=== PATIENT | male | born 1975 | race Caucasian/White ===

== ENCOUNTER 2016-05-24 17:16 | Inpatient (IN) | payer BC ==
[2016-05-24] MEDS ORDERED: BENADRYL 50 MG/ML IV ONE (17:28)
[2016-05-24] MEDS ORDERED: Sodium Chloride 0.9% 1000 ML 1,000 ML IV STA (17:28)
[2016-05-24] MEDS ORDERED: Pepcid 20 MG VIAL IV ONE ×2 (17:28→17:32)
[2016-05-24] MEDS ORDERED: MORPHINE SULFATE 10 MG/ML IV ONE (17:29)
[2016-05-24] MEDS ORDERED: MORPHINE SULFATE 10 MG/ML ONE (17:32)
[2016-05-24] MEDS ORDERED: Sodium Chloride 0.9% 1000 ML 1,000 ML ONE ×2 (17:32→18:54)
[2016-05-24] MEDS ORDERED: Zofran 4 MG/2 ML VIAL ONE ×2 (17:32→18:53)
[2016-05-24] MEDS ORDERED: BENADRYL 50 MG/ML ONE (17:32)
[2016-05-24] MEDS ORDERED: Zofran 4 MG/2 ML VIAL IV ONE ×2 (17:32→18:52)
[2016-05-24 17:36] LABS: BASOPHIL % 0.2 % (0.0-0.4); Eosinophil % 0.9 % (0.00-5.0); Granulocytes % 73.8 % (36.0-66.0); Lymphocytes % 18.8 % (24.0-44.0); Mean Cell Volume 88.1 fl (78-100); Mean Corpuscular Hemoglobin 29.4 pg (26-32); Mean Platelet Volume 10.5 fl (6-9.5); Monocytes % 6.3 % (0.0-12.0); Platelet Count 239 K/mm3 (150-450); Red Blood Count 4.94 M/mm3 (4.1-5.6); Red Cell Distribution Width 12.8 % (11.5-14.0)
[2016-05-24 17:46] LABS: Bacteria FEW /HPF (NEGATIVE); COMPLETE URINE MICROSCOPIC? YES; Collection Type CLEAN CATCH; Epithelial Cells RARE /HPF (FEW); Mucus SLIGHT /HPF (NEGATIVE); Ph 8.5 (5-6); WBC 0-2 /HPF (0-5)
[2016-05-24 17:55] LABS: ALBUMIN 4.6 g/dL (3.4-5.0); ALKALINE PHOSPHATASE 92 U/L (46-116); ANION GAP 14.6 MEQ/L (5-15); BLOOD UREA NITROGEN 16 mg/dL (9-20); CHLORIDE 103 mEq/L (98-107); Carbon Dioxide 30.1 mEq/L (21-32); Glucose 110 MG/DL (70-110); LIPASE 151 U/L (73-393); SGOT/AST 22 U/L (15-37); SGPT/ALT 25 U/L (12-78); SODIUM 144 mEq/L (136-145); Total Protein 7.8 gm/dL (6.4-8.2)
[2016-05-24] MEDS ORDERED: MORPHINE SULFATE 4 MG INJ IV ONE ×2 (18:03→18:52)
[2016-05-24] MEDS ORDERED: MORPHINE SULFATE 4 MG INJ ONE ×2 (18:06→18:54)
--- NOTE | 2016-05-24 18:13 | ERPHSYRPT ---
- History of Present Illness Time Seen by Provider: 05/24/16 17:28 Historian: patient Patient Subjective Stated Complaint: PT COMPLAINS OF SUDDEN ONSET ABDOMINAL PAIN TODAY. AROUND 1330 STATES LAST BM TODAY DENIES ANY PROBLEMS WITH URINATION OR ANY HX OF KIDNEY STONES. Triage Nursing Assessment: PT ALERT GRIMACINGIN PAIN PALE WARM AND DRY PT AMBULATED TO ROOM. PAIN ON PALPATION TO RIGHT LOWER QUAD. LAST ATE 1330 Physician History: CC: abd pain Hx: 40 y/o male patient of Dr Aj Gann. He ate [place] for lunch today. Within 30 minutes he had cramping excruciating abd pain. Had normal BM. Sat on toilet trying to relieve symptoms with BM. Nausea. Scant vomit. No fever or chills. Pain is severe. Finally came to ER. No blood in urine. Normal urination. No back pain. No hx of this pain in the past. He has known small umbilical hernia. Timing/Duration: today Quality: cramping, sharpness, stabbing Pain Radiation: no radiation Severity of Pain-Max: severe Severity of Pain-Current: severe Allergies/Adverse Reactions: No Known Drug Allergies Allergy (Unverified 05/24/16 17:22) Home Medications: Lisinopril 10 mg PO 05/24/16 [History] Hx Tetanus, Diphtheria Vaccination/Date Given: No Hx Influenza Vaccination/Date Given: No (UNKNOWN) Immunizations Up to Date: Yes - Review of Systems Constitutional: Malaise, No Fever, No Chills Eyes: No Symptoms Ears, Nose, & Throat: No Symptoms Respiratory: No Cough Cardiac: No Chest Pain Abdominal/Gastrointestinal: Abdominal Pain, Nausea, No Diarrhea, No Constipation Genitourinary Symptoms: No Dysuria, No Hematuria, No Flank Pain Skin: No Rash Neurological: No Headache All Other Systems: Reviewed and Negative - Past Medical History Pertinent Past Medical History: Yes Cardiac History: Hypertension Other Medical History: Umbilical hernia - Past Surgical History Past Surgical History: Yes Other Surgical History: NOSE - Social History Smoking Status: Never smoker Exposure to second hand smoke: No Drug Use: none 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 (, 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) - Nursing Vital Signs Nursing Vital Signs: Initial Vital Signs Temperature 97.4 F Temperature Source Oral Pulse Rate 75 Respiratory Rate 18 Blood Pressure 141/85 Pain Intensity 8 - Physical Exam General Appearance: alert, other (pale, thin, uncomfortable appearing on arrival , dry skin) Eye Exam: PERRL/EOMI Ears, Nose, Throat Exam: normal ENT inspection, moist mucous membranes Neck Exam: normal inspection, non-tender, supple Respiratory Exam: normal breath sounds, lungs clear Cardiovascular Exam: regular rate/rhythm, No murmur Gastrointestinal/Abdomen Exam: soft, tenderness (RLQ point with guarding, mild distention), hernia (small nontender umbilical without redness or swelling) Male Genitalia Exam: normal genitalia, No hernia, No testicular tenderness Back Exam: normal inspection, No CVA tenderness Extremity Exam: normal inspection, normal range of motion Neurologic Exam: alert, oriented x 3, cooperative, sensation nml, No motor deficits Skin Exam: warm, dry, No rash SpO2 Interpretation: normal SpO2: 99 Oxygen Delivery: Room Air Procedures - Additional Procedures Additional Procedures: gastric tube replacement Progress: Left sided NG placed. Morphine, zofran, nasal neosynephrine, and viscous lidocaine used. Placement confirmed after 2 attempts. Tolerated with some difficulty. Will get KUB to check placement. - Course Nursing assessment & vital signs reviewed: Yes - CT Exams abd/pelvis CT Interpretation: Discussed w/radiologist, Tele-radiologist Report (proximal small bowel closed loop obstruction secondary to bowel malrotation) Ordered Tests: Active Orders 24 hr Category Date Time Status Clean Catch Urine Specimen STAT Care 05/24/16 17:28 Active Gastric Tube Insertion STAT Care 05/24/16 18:52 Active IV Insertion STAT Care 05/24/16 17:28 Active NPO (ED) STAT Care 05/24/16 17:28 Active ABDOMEN AND PELVIS W CONTRAST [CT] Stat Exams 05/24/16 17:28 Taken KUB Stat Exams 05/24/16 19:20 Ordered CBC W DIFF Stat Lab 05/24/16 17:31 Completed CMP Stat Lab 05/24/16 17:31 Completed LIPASE Stat Lab 05/24/16 17:31 Completed Lactic Acid Urgent Lab 05/24/16 17:28 Completed UA W/ MICROSCOPIC Stat Lab 05/24/16 17:31 Completed Transfer Order Routine Transfer 05/24/16 18:58 Ordered Medication Summary Generic Name Dose Route Start Last Admin Trade Name Freq PRN Reason Stop Dose Admin Sodium Chloride 1,000 mls @ 100 mls/hr 05/24/16 19:00 05/24/16 19:00 Sodium Chloride 0.9% 1000 Ml IV 06/23/16 18:59 100 mls/hr .Q10H LANNY Administration Discontinued Medications Generic Name Dose Route Start Last Admin Trade Name Imani PRN Reason Stop Dose Admin Diphenhydramine HCl 40 mg 05/24/16 17:28 05/24/16 17:36 Benadryl 50 Mg/Ml IV 05/24/16 17:29 40 mg STAT ONE Administration Diphenhydramine HCl Confirm 05/24/16 17:32 Benadryl 50 Mg/Ml Administered 05/24/16 17:33 Dose 50 mg .ROUTE .STK-MED ONE Famotidine 20 mg 05/24/16 17:28 05/24/16 17:41 Pepcid 20 Mg Vial IV 05/24/16 17:29 20 mg STAT ONE Administration Famotidine Confirm 05/24/16 17:32 Pepcid 20 Mg Vial Administered 05/24/16 17:33 Dose 20 mg IV .STK-MED ONE Sodium Chloride 1,000 mls @ 999 mls/hr 05/24/16 17:28 05/24/16 17:36 Sodium Chloride 0.9% 1000 Ml IV 05/24/16 18:28 999 mls/hr .Q1H1M STA Administration Sodium Chloride Confirm 05/24/16 17:32 Sodium Chloride 0.9% 1000 Ml Administered 05/24/16 17:33 Dose 1,000 mls @ ud .ROUTE .STK-MED ONE Sodium Chloride Confirm 05/24/16 18:54 Sodium Chloride 0.9% 1000 Ml Administered 05/24/16 18:55 Dose 1,000 mls @ ud .ROUTE .STK-MED ONE Lidocaine HCl 20 ml 05/24/16 18:53 05/24/16 19:05 Xylocaine Viscous 2% 20 Ml Cup PO 05/24/16 18:54 20 ml STAT ONE Administration Lidocaine HCl Confirm 05/24/16 18:54 Xylocaine Hcl Viscous * Administered 05/24/16 18:55 Dose 1 ml .ROUTE .STK-MED ONE Morphine Sulfate 8 mg 05/24/16 17:29 05/24/16 17:38 Morphine Sulfate 10 Mg/Ml IV 05/24/16 17:30 8 mg STAT ONE Administration Morphine Sulfate Confirm 05/24/16 17:32 Morphine Sulfate 10 Mg/Ml Administered 05/24/16 17:33 Dose 10 mg .ROUTE .STK-MED ONE Morphine Sulfate 4 mg 05/24/16 18:03 05/24/16 18:07 Morphine Sulfate 4 Mg Inj IV 05/24/16 18:04 4 mg STAT ONE Administration Morphine Sulfate Confirm 05/24/16 18:06 Morphine Sulfate 4 Mg Inj Administered 05/24/16 18:07 Dose 4 mg .ROUTE .STK-MED ONE Morphine Sulfate 4 mg 05/24/16 18:52 05/24/16 19:02 Morphine Sulfate 4 Mg Inj IV 05/24/16 18:53 4 mg STAT ONE Administration Morphine Sulfate Confirm 05/24/16 18:54 Morphine Sulfate 4 Mg Inj Administered 05/24/16 18:55 Dose 4 mg .ROUTE .STK-MED ONE Ondansetron HCl 4 mg 05/24/16 17:32 05/24/16 17:34 Zofran 4 Mg/2 Ml Vial IV 05/24/16 17:33 4 mg STAT ONE Administration Ondansetron HCl Confirm 05/24/16 17:32 Zofran 4 Mg/2 Ml Vial Administered 05/24/16 17:33 Dose 4 mg .ROUTE .STK-MED ONE Ondansetron HCl 4 mg 05/24/16 18:52 05/24/16 19:01 Zofran 4 Mg/2 Ml Vial IV 05/24/16 18:53 4 mg STAT ONE Administration Ondansetron HCl Confirm 05/24/16 18:53 Zofran 4 Mg/2 Ml Vial Administered 05/24/16 18:54 Dose 4 mg .ROUTE .STK-MED ONE Phenylephrine HCl Confirm 05/24/16 19:08 Neosynephrine 0.5% Nasal [place]ifford/Drops Administered 05/24/16 19:09 Dose 15 ml .ROUTE .STK-MED ONE Lab/Rad Data: Laboratory Result Diagrams 05/24/16 17:31 05/24/16 17:31 Laboratory Results 05/24/16 05/24/16 05/24/16 Range/Units 17:31 17:31 17:31 WBC 10.0 (4.0-10.5) K/mm3 RBC 4.94 (4.1-5.6) M/mm3 Hgb 14.5 (12.5-18.0) gm/dl Hct 43.5 (42-50) % MCV 88.1 (78-100) fl MCH 29.4 (26-32) pg MCHC 33.3 (32-36) g/dl RDW 12.8 (11.5-14.0) % Plt Count 239 (150-450) K/mm3 MPV 10.5 H (6-9.5) fl Gran % 73.8 H (36.0-66.0) % Lymphocytes % 18.8 L (24.0-44.0) % Monocytes % 6.3 (0.0-12.0) % Eosinophils % 0.9 (0.00-5.0) % Basophils % 0.2 (0.0-0.4) % Basophils # 0.02 (0-0.4) Sodium 144 (136-145) mEq/L Potassium 4.0 (3.5-5.1) mEq/L Chloride 103 (98-107) mEq/L Carbon Dioxide 30.1 (21-32) mEq/L Anion Gap 14.6 (5-15) MEQ/L BUN 16 (9-20) mg/dL Creatinine 1.28 (0.55-1.30) mg/dl Estimated GFR > 60 ML/MIN Glucose 110 (70-110) MG/DL Lactic Acid (0.4-2.0) Calcium 9.7 (8.5-10.1) mg/dL Total Bilirubin 1.0 (0.2-1.0) mg/dL AST 22 (15-37) U/L ALT 25 (12-78) U/L Alkaline Phosphatase 92 (46-116) U/L Serum Total Protein 7.8 (6.4-8.2) gm/dL Albumin 4.6 (3.4-5.0) g/dL Lipase 151 (73-393) U/L Ur Collection Type CLEAN CATCH Urine Color YELLOW (YELLOW) Urine Appearance CLOUDY (CLEAR) Urine pH 8.5 (5-6) Ur Specific [place] 1.020 (1.005-1.025) Urine Protein TRACE (Negative) Urine Glucose (UA) NEGATIVE (NEGATIVE) mg/dL Urine Ketones NEGATIVE (NEGATIVE) Urine Nitrite NEGATIVE (NEGATIVE) Urine Bilirubin NEGATIVE (NEGATIVE) Urine Urobilinogen 1 (0-1) mg/dL Urine WBC (Auto) NEGATIVE (NEGATIVE) Urine RBC (Auto) NEGATIVE (0-5) Benjamin/ul Urine Microscopic RBC 0-2 (0-2) /HPF Urine Microscopic WBC 0-2 (0-5) /HPF Ur Epithelial Cells RARE (FEW) /HPF Amorphous Crystals MODERATE (NEGATIVE) /HPF Urine Bacteria FEW (NEGATIVE) /HPF Urine Mucus SLIGHT (NEGATIVE) /HPF Specimen Received 05/24/16 1730 05/24/16 Range/Units 17:28 WBC (4.0-10.5) K/mm3 RBC (4.1-5.6) M/mm3 Hgb (12.5-18.0) gm/dl Hct (42-50) % MCV (78-100) fl MCH (26-32) pg MCHC (32-36) g/dl RDW (11.5-14.0) % Plt Count (150-450) K/mm3 MPV (6-9.5) fl Gran % (36.0-66.0) % Lymphocytes % (24.0-44.0) % Monocytes % (0.0-12.0) % Eosinophils % (0.00-5.0) % Basophils % (0.0-0.4) % Basophils # (0-0.4) Sodium (136-145) mEq/L Potassium (3.5-5.1) mEq/L Chloride (98-107) mEq/L Carbon Dioxide (21-32) mEq/L Anion Gap (5-15) MEQ/L BUN (9-20) mg/dL Creatinine (0.55-1.30) mg/dl Estimated GFR ML/MIN Glucose (70-110) MG/DL Lactic Acid 1.9 (0.4-2.0) Calcium (8.5-10.1) mg/dL Total Bilirubin (0.2-1.0) mg/dL AST (15-37) U/L ALT (12-78) U/L Alkaline Phosphatase (46-116) U/L Serum Total Protein (6.4-8.2) gm/dL Albumin (3.4-5.0) g/dL Lipase (73-393) U/L Ur Collection Type Urine Color (YELLOW) Urine Appearance (CLEAR) Urine pH (5-6) Ur Specific [place] (1.005-1.025) Urine Protein (Negative) Urine Glucose (UA) (NEGATIVE) mg/dL Urine Ketones (NEGATIVE) Urine Nitrite (NEGATIVE) Urine Bilirubin (NEGATIVE) Urine Urobilinogen (0-1) mg/dL Urine WBC (Auto) (NEGATIVE) Urine RBC (Auto) (0-5) Benjamin/ul Urine Microscopic RBC (0-2) /HPF Urine Microscopic WBC (0-5) /HPF Ur Epithelial Cells (FEW) /HPF Amorphous Crystals (NEGATIVE) /HPF Urine Bacteria (NEGATIVE) /HPF Urine Mucus (NEGATIVE) /HPF Specimen Received - Progress Progress Note: 05/24/16 18:12 Pt appears very uncomfortable. Analgesics and IVF bolus given. Will get CT to evaluate for appendicitis, bowel obstr, or renal stone disease. 05/24/16 18:[address] Pt and [address] of CT findings. Called Dr Parvin Verma who advised NG, admit. Spoke to Dr Parvin Gann who agrees. Will see patient in: hospital (full admit) Counseled pt/family regarding: lab results, diagnosis, need for follow-up, rad results - Departure Time of Disposition: 18:57 Departure Disposition: In-patient Admission Clinical Impression: Closed loop small bowel obstruction, Malrotation of intestine Condition: Fair Critical Care Time: No Referrals: SHENA GANN [Primary Care Provider] -
[2016-05-24] MEDS ORDERED: XYLOCAINE VISCOUS 2% 20 ML CUP PO ONE (18:53)
[2016-05-24] MEDS ORDERED: XYLOCAINE HCl Viscous ONE (18:54)
[2016-05-24] MEDS: Sodium Chloride 0.9% 1000 ML 1,000 ML IV SCH (19:00)
[2016-05-24] MEDS ORDERED: NEOSYNEPHRINE 0.5% NASAL SPRAY/DROPS ONE (19:08)
[2016-05-24] MEDS ORDERED: NEOSYNEPHRINE 0.5% NASAL SPRAY/DROPS NS ONE (19:22)
--- NOTE | 2016-05-24 20:45 | XRAY ---
Indication: Right lower quadrant pain. Nausea. Multiple contiguous axial images obtained through the abdomen and pelvis using 80 cc Isovue 370 contrast only. Comparison: May 23, 2007 Lung bases remain clear with pectus excavatum deformity. Heart is not enlarged. Stomach is moderately distended with food. The duodenal jejunal junction is again right of midline, abnormally positioned. The small bowel loops are now fluid distended up to 3.5 cm in diameter with fluid leveling and right lower quadrant transition point favoring distal small bowel obstruction. There is normal bowel gas and fecal debris in the colon and minimal scattered diverticulosis. Normal appendix. No free fluid/air. Minimally enlarging fatty umbilical hernia. Remaining liver, gallbladder, pancreas, spleen, adrenal glands, kidneys, ureters, bladder, and aorta appear normal in CT appearance and attenuation. No pathologic retroperitoneal lymphadenopathy. Osseous structures intact. Impression: New finding for partial distal small bowel obstruction with right lower quadrant transition point. Suspect malrotation as a cause. Again minimal colonic diverticulosis, fatty umbilical hernia, and pectus excavatum deformity. Comment: Preliminary interpretation was made by [facility]. No critical discrepancy. CBD is 18.66
--- NOTE | 2016-05-24 20:49 | XRAY ---
Indication: NG tube placement. Comparison: None Partial KUB centered over the epigastrium demonstrates NG tube tip in the gastric lumen pointed superiorly and to the left. Abnormal air distended small bowel loops further detailed on CT abdomen/pelvis performed earlier in the day.
[2016-05-24] MEDS: Pepcid 20 MG VIAL IV SCH (21:44)
[2016-05-24] MEDS: MORPHINE SULFATE 4 MG INJ IV PRN (23:01)
[2016-05-25] MEDS: Sodium Chloride 0.9% 1000 ML 1,000 ML IV SCH ×2 (01:00→10:25)
[2016-05-25] MEDS: MORPHINE SULFATE 4 MG INJ IV PRN ×4 (06:03→22:15)
[2016-05-25] MEDS: Zofran 4 MG/2 ML VIAL IV PRN ×3 (06:10→17:07)
--- NOTE | 2016-05-25 08:13 | PCM.HP ---
History of Present Illness - Chief Complaint Chief Complaint: Bowel Obsturction Date: 05/25/16 History of Present Illness: is a 40 year old male. who was feeling himself until after lunch developed severe pain in the abdomen and nausea. He came to the ED. CT showed malrotation of intestine with small bowel obstruction. NG was inserted. He has some relief of abdominal pain and nausea. Medications & Allergies Home Medications: Home Medication List Lisinopril 10 mg PO DAILY 05/24/16 [History Confirmed 05/24/16] Allergies/Adverse Reactions: Allergies Allergy/AdvReac Type Severity Reaction Status Date / Time No Known Drug Allergies Allergy Unverified 05/24/16 17:22 - Past Medical History Past Medical History: Yes Neurological History: No Pertinent History ENT History: No Pertinent History Cardiac History: Hypertension Respiratory History: No Pertinent History Endocrine Medical History: No Pertinent History Musculoskelatal History: No Pertinent History GI Medical History: Other History: No Pertinent History Pyscho-Social History: No Pertinent History Male Reproductive Disorders: No Pertinent History Comment: Umbilical hernia - Past Surgical History Past Surgical History: Yes Neuro Surgical History: No Pertinent History Cardiac History: No Pertinent History Respiratory Surgery: No Pertinent History GI Surgical History: No Pertinent History Genitourinary Surgical Hx: No Pertinent History Musculskeletal Surgical Hx: No Pertinent History Male Surgical History: No Pertinent History Other Surgical History: surgery on nose for deviated septum - Social History Smoking Status: Never smoker Exposure to second hand smoke: No Alcohol: Weekly Drug Use: none - Physical Exam Vital Signs: Vital Signs - 24 hr Temp Pulse Resp BP BP Pulse Ox 05/25/16 06:56 97.9 F 80 18 142/74 93 L 05/25/16 04:00 98.4 F 71 17 125/63 95 05/24/16 23:55 98.4 F 79 17 135/76 95 05/24/16 20:16 97.4 F 91 H 17 136/63 95 05/24/16 19:21 99 05/24/16 18:11 75 18 141/85 97 05/24/16 17:23 97.4 F 65 18 142/106 99 Oxygen-Last 24 hours O2 Percentage 1 Liter = 24% General Appearance: no apparent distress Neurologic Exam: alert, oriented x 3, cooperative Eye Exam: No scleral icterus, No pale conjunctivae Ears, Nose, Throat Exam: moist mucous membranes Neck Exam: non-tender, supple Respiratory Exam: normal breath sounds, lungs clear Cardiovascular Exam: regular rate/rhythm, normal heart sounds, No edema Gastrointestinal/Abdomen Exam: soft, tenderness, No normal bowel sounds ( hypoactive), No guarding, No rebound Extremity Exam: normal inspection, No calf tenderness, No pedal edema Assessment/Plan (1) Malrotation of intestine Current Visit: Yes Status: Acute Assessment & Plan: Admission by Dr. Verma with orders per Dr. Verma Discussed risk of anesthesia and Golman cardiac index he is low risk for surgery discussed with patient no further pre op testing should he need any type of surgery will hold lisinopril for now as he is npo and BP controlled. Code(s): Q43.3 - CONGENITAL MALFORMATIONS OF INTESTINAL FIXATION (2) Small bowel obstruction Current Visit: Yes Status: Acute Code(s): K56.69 - OTHER INTESTINAL OBSTRUCTION (3) Hernia Current Visit: Yes Status: Acute Code(s): K46.9 - UNSPECIFIED ABDOMINAL HERNIA WITHOUT OBSTRUCTION OR GANGRENE (4) Hypertension Current Visit: Yes Status: Acute Code(s): I10 - ESSENTIAL (PRIMARY) HYPERTENSION
[2016-05-25] MEDS: CETACAINE SPRAY TP PRN ×2 (08:40→14:59)
[2016-05-25] MEDS: Pepcid 20 MG VIAL IV SCH ×2 (10:24→22:16)
[2016-05-25] MEDS: Phenergan 25 MG INJ IV PRN ×2 (11:58→22:16)
[2016-05-25 12:23] LABS: ANION GAP 11.7 MEQ/L (5-15); BLOOD UREA NITROGEN 10 mg/dL (9-20); CHLORIDE 106 mEq/L (98-107); Carbon Dioxide 28.5 mEq/L (21-32); Glucose 100 MG/DL (70-110); SODIUM 142 mEq/L (136-145)
--- NOTE | 2016-05-25 12:47 | XRAY ---
Indication: Abdominal pain. Comparison: CT abdomen/pelvis and KUB one day earlier. 2 views of the abdomen demonstrates interval resolved small bowel distention. Bowel gas pattern now appears nonspecific and nonobstructed. Stable NG tube. Solid organs and osseous structures unremarkable. Impression: Nonacute nonobstructed abdomen.
[2016-05-25] MEDS: D5W/0.45NS W/ 20mEq KCl 1000 ML 1,000 ML IV SCH ×2 (12:56→23:30)
[2016-05-25] MEDS: Levaquin 500MG/100ML D5W 100 ML IV SCH (12:56)
[2016-05-25] MEDS: FLAGYL 500 MG IVPB 100 ML IV SCH ×2 (14:55→22:14)
[2016-05-26] MEDS: Zofran 4 MG/2 ML VIAL IV PRN (03:30)
[2016-05-26] MEDS: MORPHINE SULFATE 4 MG INJ IV PRN (03:30)
[2016-05-26 05:29] LABS: Mean Cell Volume 89.5 fl (78-100); Mean Corpuscular Hemoglobin 29.5 pg (26-32); Mean Platelet Volume 10.4 fl (6-9.5); Platelet Count 196 K/mm3 (150-450); Red Blood Count 4.75 M/mm3 (4.1-5.6); Red Cell Distribution Width 12.6 % (11.5-14.0); White Blood Count 11.2 K/mm3 (4.0-10.5)
[2016-05-26] MEDS: FLAGYL 500 MG IVPB 100 ML IV SCH ×3 (05:51→22:13)
[2016-05-26 05:55] LABS: ANION GAP 9.5 MEQ/L (5-15); Carbon Dioxide 31.8 mEq/L (21-32)
[2016-05-26] MEDS: CETACAINE SPRAY TP PRN (07:18)
--- NOTE | 2016-05-26 08:33 | CONS ---
CONSULT DATE: 05/25/2016 This patient is seen for Dr. Verma who is paraprofessional aide teacher for our group when consulted yesterday when the patient came in. HISTORY: A 40 year-old gentleman who had sudden onset of abdominal pain after eating some [place] for lunch yesterday. He had a bowel movement. He failed to improve. He then presented to the emergency department. The CT scan had partial obstruction with some distended bowel loops proximally and distally, some question of malrotation as jejunum flips to the right instead of left. Currently he is feeling much better. He is passing some flatus, feeling much better today. PAST MEDICAL HISTORY: Hypertension. He had vague abdominal cramp around Arturo time but not like this. Umbilical hernia that is not bothering him and is reducible. PAST SURGICAL HISTORY: Nasal surgery. He denied any prior abdominal surgeries. FAMILY HISTORY: Negative for inflammatory bowel disease. SOCIAL HISTORY: No smoking or alcohol abuse. REVIEW OF SYSTEMS: Ten systems reviewed. He is feeling some better. He did pass some flatus today. He did have a bowel movement yesterday. He had a little bit of nausea otherwise noted that the abdominal pain improved today. Per admission assessment, per as noted above. Abdominal complaints and nausea. No chest pain or palpitations. Other systems negative or noncontributory as noted above per admission assessment. PHYSICAL EXAMINATION: Afebrile, temperature 98.4F, pulse 71, respiratory rate 15, blood pressure 125/63. GENERAL: No acute distress. HEENT: Sclera nonicteric. NECK: No JVD. CHEST: Equal excursion, nonlabored breathing. ABDOMEN: Very soft with minimal to mild tenderness mid abdomen, reducible umbilical hernia. No other palpable hernia defect on the abdominal wall. No rebound. No guarding. Very soft abdomen. Mild distension. The patient reports much improved from yesterday. I am not sure whether Dr. Verma examined him yesterday or not. EXTREMITIES: No significant edema. NEURO: Alert, seems to be moving extremities grossly symmetrically. LAB DATA AND TESTS: His liver function test, lipase within normal limits on admission. White blood cell count 10, hemoglobin 14.5, PLT 239,000. Lactic acid normal. CT scan reviewed with Dr. Alonzo in the radiology department. He does notice some malrotation with the duodenum swinging around and then the small bowel flipping to the right instead of off to the left with some fluid filled loops of bowel some decompressed additionally. He feels is a possible partial obstruction. He does not feel it is closed loop at this time clinically. IMPRESSION: Question partial small bowel obstruction versus enteritis as it happened 30 minutes after eating a meal. Either way he seems to be improved today. Discussed in length with Dr. Forde and the patient, her , at length. He does seem to be improved. I would recommend continue bowel rest, NG decompression, IV hydration, check some films today and films tomorrow. Check his labs. Would try on empiric antibiotics as this was following eating lunch yesterday. Otherwise check CBC and labs tomorrow and repeat the films. If he continues to improve may be able to work in NG decompression possibly tomorrow. If he fails to improve over the next couple of days may need to consider small bowel follow through. I spoke with Dr. Alonzo. He did not feel small bowel follow through is of any benefit right at this moment. The patient and his agreed to the plan, continue bowel rest, NG decompression for now, follow serial labs and exams. They understand I will be tied up in [place] early in the day. If he is feeling much better and films are improved consider discontinuing his NG tube. Otherwise late in the day or even before he would be able to be evaluated. They understand and agree to the planned procedure, continue conservative trial management at this time again this was after some ingestion of some food. Trial of empiric antibiotics. Again, this patient was seen for Dr. Verma who was consulted yesterday when he was on-call.
[2016-05-26] MEDS: D5W/0.45NS W/ 20mEq KCl 1000 ML 1,000 ML IV SCH ×3 (08:48→22:12)
[2016-05-26] MEDS: Pepcid 20 MG VIAL IV SCH ×2 (08:48→22:13)
--- NOTE | 2016-05-26 10:36 | XRAY ---
Indication: Abdominal pain. Comparison: One day earlier 2 views of the abdomen unchanged again nonacute nonobstructed with NG tube tip in the stomach and left lung base atelectasis/scarring. No new/acute findings.
[2016-05-26] MEDS: Levaquin 500MG/100ML D5W 100 ML IV SCH (12:04)
--- NOTE | 2016-05-26 13:55 | PCM.NOTE ---
Date and Time: 05/26/16 1351 Subjective Assessment: mild nausea no abdominal pain the NG still with fair amount out overnight however no pain in abdomen significant pain in the nare where the ng is and in the throat. He was having chills last night as well as a temp max of 100.3. he denies any other complaints. Objective Exam General Appearance: no apparent distress Neurologic Exam: alert, oriented x 3, cooperative Skin Exam: warm, dry Ears, Nose, Throat Exam: other (left nare with NG in place tendenress in the left neck area) Neck Exam: normal inspection, supple, No lymphadenopathy, No subcutaneous emphysema Respiratory Exam: other (bibasilar mild rales), No rhonchi, No wheezing Cardiovascular Exam: regular rate/rhythm, normal heart sounds, normal peripheral pulses, No edema Gastrointestinal/Abdomen Exam: soft, normal bowel sounds, No tenderness, No distention, No mass, No guarding Extremity Exam: normal inspection, No calf tenderness, No pedal edema OBJECTIVE DATA Vital Signs: Vital Signs - 24 hr Temp Pulse Resp BP Pulse Ox 05/26/16 12:00 95.4 F 84 16 118/59 95 05/26/16 07:20 98.6 F 71 14 136/84 94 L 05/26/16 04:00 100.0 F 78 12 129/75 94 L 05/26/16 00:00 100.3 F 16 05/25/16 20:00 99.8 F 79 18 162/85 94 L 05/25/16 15:37 98.4 F 83 18 136/81 96 Pain Assessment - Last Documented Pain Intensity 6 Pain Scale Used [facility] Intake and Output: Intake & Output 05/24/16 05/25/16 05/26/16 05/27/16 11:59 11:59 11:59 11:59 Intake Total 777 3339 Output Total 4111 8380 Balance -548 -211 Weight 87.317 kg Lab Results: Lab Results-Last 24 Hours 05/26/16 05/26/16 Range/Units 05:15 05:15 WBC 11.2 H (4.0-10.5) K/mm3 RBC 4.75 (4.1-5.6) M/mm3 Hgb 14.0 (12.5-18.0) gm/dl Hct 42.5 (42-50) % MCV 89.5 (78-100) fl MCH 29.5 (26-32) pg MCHC 32.9 (32-36) g/dl RDW 12.6 (11.5-14.0) % Plt Count 196 (150-450) K/mm3 MPV 10.4 H (6-9.5) fl Sodium 143 (136-145) mEq/L Potassium 4.0 (3.5-5.1) mEq/L Chloride 106 (98-107) mEq/L Carbon Dioxide 31.8 (21-32) mEq/L Anion Gap 9.5 (5-15) MEQ/L BUN 8 L (9-20) mg/dL Creatinine 1.48 H (0.55-1.30) mg/dl Estimated GFR 56 ML/MIN Glucose 112 H (70-110) MG/DL Calcium 9.2 (8.5-10.1) mg/dL Radiology Exams: Radiology Procedures Category Date Time Status ABDOMEN 2 VIEW Routine Exams 05/26/16 10:00 Completed ABDOMEN 2 VIEW Urgent Exams 05/25/16 11:44 Completed Assessment/Plan (1) Malrotation of intestine Current Visit: Yes Status: Acute Assessment & Plan: there was the increased creatinine this am but is getting iv fluids NG is being pulled today by surgery and the diet advanced to clears. he is on levaquin and flagyl small spike in wbc and the chills overnight have up moving today possible atelectasis given his dependent state attached to the suction monitor for any worsening. continue to hold lisinopril given bp controlled and mild increase in creatinine Code(s): Q43.3 - CONGENITAL MALFORMATIONS OF INTESTINAL FIXATION (2) Small bowel obstruction Current Visit: Yes Status: Acute Code(s): K56.69 - OTHER INTESTINAL OBSTRUCTION (3) Hernia Current Visit: Yes Status: Acute Code(s): K46.9 - UNSPECIFIED ABDOMINAL HERNIA WITHOUT OBSTRUCTION OR GANGRENE (4) Hypertension Current Visit: Yes Status: Acute Code(s): I10 - ESSENTIAL (PRIMARY) HYPERTENSION
[2016-05-27 05:39] LABS: Mean Cell Volume 88.8 fl (78-100); Mean Corpuscular Hemoglobin 29.3 pg (26-32); Mean Platelet Volume 10.5 fl (6-9.5); Platelet Count 180 K/mm3 (150-450); Red Blood Count 4.54 M/mm3 (4.1-5.6); Red Cell Distribution Width 12.4 % (11.5-14.0); White Blood Count 7.8 K/mm3 (4.0-10.5)
[2016-05-27] MEDS: FLAGYL 500 MG IVPB 100 ML IV SCH (05:50)
[2016-05-27 05:51] LABS: ANION GAP 9.6 MEQ/L (5-15); BLOOD UREA NITROGEN 8 mg/dL (9-20); CHLORIDE 106 mEq/L (98-107); Carbon Dioxide 30.4 mEq/L (21-32); Glucose 104 MG/DL (70-110); Potassium 3.8 mEq/L (3.5-5.1); SODIUM 142 mEq/L (136-145)
[2016-05-27] MEDS: D5W/0.45NS W/ 20mEq KCl 1000 ML 1,000 ML IV SCH (06:15)
[2016-05-27 08:27] VITALS: O2SAT 95
[2016-05-27] MEDS: Pepcid 20 MG VIAL IV SCH (09:23)
[2016-05-27] MEDS: Levaquin 500MG/100ML D5W 100 ML IV SCH (11:47)
[2016-05-27 12:10] VITALS: BP 124/69; PULSE 82
--- NOTE | 2016-05-27 21:33 | PCM.DS ---
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 He was admitted to Dr. Dobson and NG was placed to suction with relief of the pain and nausea controlled with zofran and phenergan. He was started on flagyl and levaquin did have slight increased wbc and increased creat and atelectasis on lung. SBO resolved NG clamped then pulled. Tolerated regular diet with no pain and had a bowel movement and was discharged to home. - Vitals & Intake/Output Vital Signs: Vital Signs Temperature 98.7 F 05/27/16 12:00 Pulse Rate 82 05/27/16 12:00 Respiratory Rate 18 05/27/16 12:00 Blood Pressure 124/69 05/27/16 12:00 O2 Sat by Pulse Oximetry 95 05/27/16 12:00 Oxygen-Last Documented O2 Percentage 1 Liter = 24% Intake & Output: Intake & Output 05/25/16 05/26/16 05/27/16 05/28/16 11:59 11:59 11:59 11:59 Intake Total 777 3339 3445 480 Output Total 1325 3550 950 Balance -548 -211 1325 480 Weight 87.317 kg - Lab Result Diagrams: 05/27/16 05:15 05/27/16 05:15 Lab Results-Last 24 Hrs: Lab Results-Last 24 Hours 05/26/16 05/27/16 05/27/16 Range/Units 09:53 05:15 05:15 WBC 7.8 (4.0-10.5) K/mm3 RBC 4.54 (4.1-5.6) M/mm3 Hgb 13.3 (12.5-18.0) gm/dl Hct 40.3 L (42-50) % MCV 88.8 (78-100) fl MCH 29.3 (26-32) pg MCHC 33.0 (32-36) g/dl RDW 12.4 (11.5-14.0) % Plt Count 180 (150-450) K/mm3 MPV 10.5 H (6-9.5) fl Sodium 142 (136-145) mEq/L Potassium 3.8 (3.5-5.1) mEq/L Chloride 106 (98-107) mEq/L Carbon Dioxide 30.4 (21-32) mEq/L Anion Gap 9.6 (5-15) MEQ/L BUN 8 L (9-20) mg/dL Creatinine 1.28 (0.55-1.30) mg/dl Estimated GFR > 60 ML/MIN Glucose 104 (70-110) MG/DL Calcium 8.9 (8.5-10.1) mg/dL Stl C. diff Tox B Gene NEGATIVE (NEGATIVE) C.difficile [id number] PRESUMPTIVE NEGATIVE (NEGATIVE) - Radiology Exams Ordered Rad Exams-Entire Visit: Radiology Procedures Category Date Time Status ABDOMEN 2 VIEW Routine Exams 05/26/16 10:00 Completed Discharge Exam General Appearance: no apparent distress, alert Neurologic Exam: alert, oriented x 3, cooperative, normal mood/affect, nml cerebellar function, sensation nml, No motor deficits Skin Exam: normal color, warm, dry Eye Exam: PERRL, EOMI, eyes nml inspection Ears, Nose, Throat Exam: normal ENT inspection, pharynx normal, moist mucous membranes Neck Exam: normal inspection, non-tender, supple, full range of motion Respiratory Exam: normal breath sounds, lungs clear, No respiratory distress Cardiovascular Exam: regular rate/rhythm, normal heart sounds Gastrointestinal/Abdomen Exam: soft, No tenderness, No mass Extremity Exam: normal inspection, normal range of motion Back Exam: normal inspection, normal range of motion, No CVA tenderness, No vertebral tenderness Male Genitalia Exam: deferred Rectal Exam: deferred Final Diagnosis/Problem List - Final Discharge Diagnosis/Problem (1) Malrotation of intestine Status: Acute (2) Small bowel obstruction Status: Acute (3) Hernia Status: Acute (4) Hypertension Status: Acute - Discharge Discharge Date: 05/27/16 Disposition: Home, Self-Care Condition: Fair Prescriptions: No Action Lisinopril 10 mg PO DAILY Instructions: Small Bowel Obstruction Additional Instructions: follow up with Dr. Vikram Dobson in the [facility] : 2016 @ 2:00. Follow up with: SHENA GANN [Primary Care Provider] - VIKRAM DOBSON [ACTIVE STAFF] - 1 Week Forms: Discharge Instructions
== END 2016-05-27 14:00 | disposition home or self-care (01) | DRG 394 ==
LOC: ED 17:16 → OBSVTOIN 19:41 → MED SURG 19:41
PROVIDERS: ADMIT Surgery; ATTEND Surgery
DX: Q43.3 Congenital malformations of intestinal fixation (principal); K56.60 Unspecified intestinal obstruction; I10 Essential (primary) hypertension; K42.9 Umbilical hernia without obstruction or gangrene
CPT/HCPCS: 36000; 36415; 74000; 74020; 74177; 80048; 80053; 81000; 83605; 83690; 85025; 85027; 87045; 87046; 87335; 87493; 96360; 96361; 99284; J1200; J1956; J2270; J2405; J2550

== ENCOUNTER 2016-10-08 21:24 | Emergency (ER) | payer BC ==
[2016-10-08 21:33] VITALS: BP 140/106; PULSE 78; O2SAT 97
[2016-10-08] MEDS ORDERED: Augmentin 875-125 Tablet PO ONE (21:48)
[2016-10-08] MEDS ORDERED: Adacel Vial IM ONE ×2 (21:48→21:58)
[2016-10-08] MEDS ORDERED: Augmentin 875-125 Tablet ONE (21:55)
--- NOTE | 2016-10-08 21:57 | ERPHSYRPT ---
- History of Present Illness Time Seen by Provider: 10/08/16 21:39 Source: patient Exam Limitations: clinical condition Patient Subjective Stated Complaint: fishing hook in ear Triage Nursing Assessment: patient was fishing and got fish hook stuck in left ear Physician History: PATIENT STATES WHILE FISHING SUSTAINED FISH HOOK INTO OUTER EAR, HAS PAIN DISCOMFORT. Timing/Duration: abrupt onset Severity: moderate ENT Location: ear (R) Prearrival Treatment: no prearrival treatment Modifying Factors: Improves With: other (MOTION OF EAR) Associated Symptoms: ear pain (R) Allergies/Adverse Reactions: No Known Drug Allergies Allergy (Unverified 05/24/16 17:22) Home Medications: Lisinopril 10 mg PO DAILY 05/24/16 [History] Hx Tetanus, Diphtheria Vaccination/Date Given: No Hx Influenza Vaccination/Date Given: No Hx Pneumococcal Vaccination/Date Given: No Immunizations Up to Date: No - Review of Systems Constitutional: No Symptoms Ears, Nose, & Throat: Other (FOREIGN BODY IN AURICLE OF EAR) Respiratory: No Symptoms Abdominal/Gastrointestinal: No Symptoms Neurological: No Symptoms - Past Medical History Pertinent Past Medical History: Yes Neurological History: No Pertinent History ENT History: No Pertinent History Cardiac History: Hypertension Respiratory History: No Pertinent History Endocrine Medical History: No Pertinent History Musculoskeletal History: No Pertinent History GI Medical History: Other History: No Pertinent History Psycho-Social History: No Pertinent History Male Reproductive Disorders: No Pertinent History Other Medical History: Umbilical hernia - Past Surgical History Past Surgical History: Yes Neuro Surgical History: No Pertinent History Cardiac: No Pertinent History Respiratory: No Pertinent History Gastrointestinal: No Pertinent History Genitourinary: No Pertinent History Musculoskeletal: No Pertinent History Male Surgical History: No Pertinent History Other Surgical History: surgery on nose for deviated septum - Social History Smoking Status: Never smoker Exposure to second hand smoke: No Drug Use: none 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 (, 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) - Nursing Vital Signs Nursing Vital Signs: Initial Vital Signs Temperature 98.4 F Temperature Source Oral Pulse Rate 78 Respiratory Rate 18 Blood Pressure [Right Arm] 140/106 Pain Intensity 4 - Physical Exam General Appearance: no apparent distress Eye Exam: bilateral eye: normal inspection, PERRL Ear Exam: right ear: tenderness (FOREIGN BODY IN MID HELIX OF RIGHT EAR), left ear: auricle normal Cardiovascular/Respiratory Exam: normal breath sounds, regular rate/rhythm SpO2: 97 Oxygen Delivery: Room Air Ordered Tests: Medication Summary Discontinued Medications Generic Name Dose Route Start Last Admin Trade Name Imani PRN Reason Stop Dose Admin Amoxicillin/Clavulanate Potassium 875 mg 10/08/16 21:48 Augmentin 875-125 Tablet PO 10/08/16 21:49 STAT ONE Diphtheria/Tetanus/Acell Pertussis 0.5 ml 10/08/16 21:48 Adacel Vial IM 10/08/16 21:49 .ONCE ONE - Progress Progress: improved Progress Note: 10/08/16 21:54 PATIENT ADMINIISTERED LIDOCAINE 2& 1ML ADJACENT TO FOREIGN BODY FISH HOOK IN HELIX OF RIGHT AURICLE, BETADINE APPLIED, HOOK PULLED THROUGH, PATIENT GIVEN T- DAP 0.5ML IM, AND AUGMENTIN 875MG ORALLY Counseled pt/family regarding: diagnosis, need for follow-up - Departure Time of Disposition: 22:10 Departure Disposition: Home Clinical Impression: FISH HOOK REMOVAL RIGHT EAR Condition: Stable Critical Care Time: No Additional Instructions: TYLENOL OR MOTRIN NEEDED FOR PAIN. WATCH FOR SIGNS OF INFECTION REDNESS, SWELLING OR DRAINAGE. ANTIBIOTIC AUGMENTIN 875MG TWICE DAILY FOR 10 DAYS. Prescriptions: Amox Tr/Potass Clav. 875 mg [Augmentin 875-125 Tablet] 875 mg PO BID #20 tablet
== END 2016-10-08 22:23 | disposition home or self-care (01) ==
LOC: ED 21:24
DX: S01.341A Puncture wound with foreign body of right ear, initial encounter (principal); W45.8XXA Other foreign body or object entering through skin, initial encounter
CPT/HCPCS: 90471; 90715; 99284; A9270-GY

== ENCOUNTER 2019-07-06 10:25 | Day surgery (SDC) | payer BC ==
--- NOTE | 2019-07-03 15:19 | HP ---
DATE OF SURGERY: 07/06/2019 ADMISSION DIAGNOSIS: Umbilical hernia. ANTICIPATED PROCEDURE: Repair. HISTORY OF PRESENT ILLNESS: The patient has a symptomatic umbilical hernia, presents for repair and is done in [facility]. PAST MEDICAL HISTORY: ALLERGIES: NONE. MEDICATIONS: See list. PAST SURGICAL HISTORY: Sinus surgery. SOCIAL HISTORY: Negative. FAMILY HISTORY: Negative. REVIEW OF SYSTEMS: Negative. PHYSICAL EXAMINATION: VITAL SIGNS: Normal. CHEST: Clear. COR: Regular. ABDOMEN: Umbilical hernia. IMPRESSION: Symptomatic umbilical hernia. PLAN: Repair.
[~2019-07-06 10:25] MED LIST: CEFAZOLIN 2 GM-D5W BAG** 2 GM/50 ML ML IV ONE; CEFAZOLIN 2 GM-D5W BAG** 2 GM/50 ML ML IV SCH; Lactated Ringers 1,000 ML IV ONE; Lactated Ringers 1,000 ML IV SCH; Sensorcaine 0.25% 10 ML ONE
[2019-07-06] MEDS ORDERED: Zemuron 100 MG/10 ML ONE (12:37)
[2019-07-06] MEDS ORDERED: Quelicin Fliptop 200 MG/10 ML ONE (12:37)
[2019-07-06] MEDS ORDERED: Versed 2 MG/2 ML Injection ONE (12:37)
[2019-07-06] MEDS ORDERED: SUBLIMAZE 100 MCG/2 ML ONE ×3 (12:38→14:05)
[2019-07-06] MEDS ORDERED: Xylocaine-Mpf 2% 5 Ml Vial ONE (13:52)
[2019-07-06] MEDS ORDERED: Ephedrine Sulfate 50 MG/ML ONE (14:19)
[2019-07-06 15:25] VITALS: PULSE 61
[2019-07-06 15:41] VITALS: BP 148/94; O2SAT 98
--- NOTE | 2019-07-07 10:54 | OP ---
SURGERY DATE/TIME: 07/06/2019 8080 PREOPERATIVE DIAGNOSIS: Symptomatic umbilical hernia. POSTOPERATIVE DIAGNOSIS: Symptomatic umbilical hernia. PROCEDURE: Primary umbilical herniorrhaphy. SURGEON: Vj Verma M.D. ANESTHESIA: General. COMPLICATIONS: None. CONDITION: Stable. INDICATION: The patient requiring herniorrhaphy. DESCRIPTION OF PROCEDURE: Taken to surgery. General anesthetic. Routine prep and drape. Transumbilical incision was made. There were four or five lobes to this and they were all dissected and the fascia totally free. It was dropped back in. It was dry. It was repaired with four simple interrupted sutures #0 Prolene inverting with the knots inverted. Figure-of-8 Vicryl was placed over top of this. The field was perfect. Skin closed with 4-0 Vicryl and glue. The patient tolerated the procedure satisfactorily.
== END 2019-07-06 15:54 | disposition home or self-care (01) ==
LOC: SDC 10:25
PROVIDERS: ATTEND Surgery
DX: K42.9 Umbilical hernia without obstruction or gangrene (principal); Z79.899 Other long term (current) drug therapy
CPT/HCPCS: J0330; J0690; J2250; J3010